=== PATIENT | female | born 1985 | race American Indian/Alaskan Native ===

== ENCOUNTER 2017-05-09 07:03 | Emergency (ER) | payer MEDICAID ==
--- NOTE | 2017-05-09 08:41 | Emergency Department Report ---
ED Abdominal Pain HPI - General Chief Complaint: Abdominal Pain Stated Complaint: ABD PAIN Time Seen by Provider: 05/09/17 08:40 Source: patient Mode of arrival: Stretcher Limitations: No Limitations - History of Present Illness Initial Comments: She has a 32-year-old female past medical history of cholecycectomy and gastroparesis who presents with severe left flank pain as R couple hours ago. Patient states pain is 10 out of 10 at it's a colic like pain that doesn't radiate. It's a stab-like pain. Patient is moving all around and writhing on the bed. Patient denies any other symptoms with her flank pain. Patient also has some nausea and vomiting. Patient is vomiting is nonbloody and nonbilious. - Related Data Previous Rx's Medication Instructions Recorded Last Taken Type Naproxen 250 mg PO BID #20 tablet 05/09/17 Unknown Rx Ondansetron [Zofran TAB] 4 mg PO Q8HR PRN #15 tablet 05/09/17 Unknown Rx Allergies Allergy/AdvReac Type Severity Reaction Status Date / Time No Known Allergies Allergy Verified 05/09/17 07:34 ED Review of Systems ROS: Stated complaint: ABD PAIN Other details as noted in HPI Constitutional: denies: chills, fever Eyes: denies: eye pain, eye discharge, vision change ENT: denies: ear pain, throat pain Respiratory: denies: cough, shortness of breath, wheezing Cardiovascular: denies: chest pain, palpitations Endocrine: no symptoms reported Gastrointestinal: nausea, vomiting, other (flank pain ). denies: abdominal pain , diarrhea Genitourinary: denies: urgency, dysuria, discharge Musculoskeletal: denies: back pain, joint swelling, arthralgia Skin: denies: rash, lesions Neurological: denies: headache, weakness, paresthesias Psychiatric: denies: anxiety, depression Hematological/Lymphatic: denies: easy bleeding, easy bruising ED Past Medical Hx - Past Medical History Previous Medical History?: Yes Additional medical history: Gastroporesis - Surgical History Past Surgical History?: Yes Hx Cholecystectomy: Yes - Social History Smoking Status: Never Smoker Substance Use Type: Marijuana - Medications Home Medications: Home Medications Medication Instructions Recorded Confirmed Last Taken Type Naproxen 250 mg PO BID #20 tablet 05/09/17 Unknown Rx Ondansetron [Zofran TAB] 4 mg PO Q8HR PRN #15 tablet 05/09/17 Unknown Rx ED Physical Exam - General Limitations: No Limitations General appearance: alert, in distress - Head Head exam: Present: atraumatic, normocephalic - Eye Eye exam: Present: normal appearance - ENT ENT exam: Present: mucous membranes moist - Neck Neck exam: Present: normal inspection - Respiratory Respiratory exam: Present: normal lung sounds bilaterally. Absent: respiratory distress - Cardiovascular Cardiovascular Exam: Present: regular rate, normal rhythm. Absent: systolic murmur, diastolic murmur, rubs, gallop - GI/Abdominal GI/Abdominal exam: Present: soft, normal bowel sounds - Extremities Exam Extremities exam: Present: normal inspection - Back Exam Back exam: Present: normal inspection - Neurological Exam Neurological exam: Present: alert, oriented X3 - Psychiatric Psychiatric exam: Present: agitated - Skin Skin exam: Present: warm, intact, normal color, diaphoretic. Absent: rash ED Course Vital Signs 05/09/17 05/09/17 05/09/17 07:34 08:00 08:52 Temperature 97.4 F L Pulse Rate 87 87 Respiratory 24 22 20 Rate Blood Pressure 150/85 Blood Pressure 152/105 [Left] O2 Sat by Pulse 100 100 Oximetry 05/09/17 05/09/17 05/09/17 09:16 10:00 11:15 Temperature Pulse Rate 89 60 74 Respiratory 20 19 18 Rate Blood Pressure Blood Pressure 145/101 145/95 146/71 [Left] O2 Sat by Pulse 100 Oximetry 05/09/17 13:19 Temperature Pulse Rate 75 Respiratory 18 Rate Blood Pressure Blood Pressure 148/82 [Left] O2 Sat by Pulse Oximetry - Reevaluation(s) Reevaluation #1: 05/09/17 13:34 Patient is feeling better after IV pain medication ED Medical Decision Making - Lab Data Result diagrams: 05/09/17 09:00 05/09/17 09:00 Lab Results 05/09/17 05/09/17 05/09/17 Range/Units 09:00 09:00 09:00 WBC 14.8 H (4.5-11.0) K/mm3 RBC 4.33 (3.65-5.03) M/mm3 Hgb 13.3 (10.1-14.3) gm/dl Hct 39.7 (30.3-42.9) % MCV 92 (79-97) fl MCH 31 (28-32) pg MCHC 34 (30-34) % RDW 15.2 (13.2-15.2) % Plt Count 291 (140-440) K/mm3 Lymph % (Auto) 10.1 L (13.4-35.0) % Reynolds % (Auto) 5.4 (0.0-7.3) % Eos % (Auto) 0.1 (0.0-4.3) % Baso % (Auto) 0.5 (0.0-1.8) % Lymph # 1.5 (1.2-5.4) K/mm3 Reynolds # 0.8 (0.0-0.8) K/mm3 Eos # 0.0 (0.0-0.4) K/mm3 Baso # 0.1 (0.0-0.1) K/mm3 Seg Neutrophils % 83.9 H (40.0-70.0) % Seg Neutrophils # 12.4 H (1.8-7.7) K/mm3 Sodium 139 (137-145) mmol/L Potassium 3.1 L (3.6-5.0) mmol/L Chloride 101.7 (98-107) mmol/L Carbon Dioxide 20 L (22-30) mmol/L Anion Gap 20 mmol/L BUN 8 (7-17) mg/dL Creatinine 0.6 L (0.7-1.2) mg/dL Estimated GFR > 60 ml/min BUN/Creatinine Ratio 13 % Glucose 110 H (65-100) mg/dL Calcium 9.3 (8.4-10.2) mg/dL Total Bilirubin 0.40 (0.1-1.2) mg/dL AST 15 (5-40) units/L ALT 12 (7-56) units/L Alkaline Phosphatase 64 (35-129) units/L Total Protein 7.4 (6.3-8.2) g/dL Albumin 4.1 (3.9-5) g/dL Albumin/Globulin Ratio 1.2 % HCG, Quant < 2 (0-4) mIU/mL Urine Color (Yellow) Urine Turbidity (Clear) Urine pH (5.0-7.0) Ur Specific Ray (1.003-1.030) Urine Protein (Negative) mg/dL Urine Glucose (UA) (Negative) mg/dL Urine Ketones (Negative) mg/dL Urine Blood (Negative) Urine Nitrite (Negative) Urine Bilirubin (Negative) Urine Urobilinogen (<2.0) mg/dL Ur Leukocyte Esterase (Negative) Urine WBC (Auto) (0.0-6.0) /HPF Urine RBC (Auto) (0.0-6.0) /HPF U Epithel Cells (Auto) (0-13.0) /HPF Urine Mucus /HPF 05/09/17 Range/Units 09:28 WBC (4.5-11.0) K/mm3 RBC (3.65-5.03) M/mm3 Hgb (10.1-14.3) gm/dl Hct (30.3-42.9) % MCV (79-97) fl MCH (28-32) pg MCHC (30-34) % RDW (13.2-15.2) % Plt Count (140-440) K/mm3 Lymph % (Auto) (13.4-35.0) % Reynolds % (Auto) (0.0-7.3) % Eos % (Auto) (0.0-4.3) % Baso % (Auto) (0.0-1.8) % Lymph # (1.2-5.4) K/mm3 Reynolds # (0.0-0.8) K/mm3 Eos # (0.0-0.4) K/mm3 Baso # (0.0-0.1) K/mm3 Seg Neutrophils % (40.0-70.0) % Seg Neutrophils # (1.8-7.7) K/mm3 Sodium (137-145) mmol/L Potassium (3.6-5.0) mmol/L Chloride (98-107) mmol/L Carbon Dioxide (22-30) mmol/L Anion Gap mmol/L BUN (7-17) mg/dL Creatinine (0.7-1.2) mg/dL Estimated GFR ml/min BUN/Creatinine Ratio % Glucose (65-100) mg/dL Calcium (8.4-10.2) mg/dL Total Bilirubin (0.1-1.2) mg/dL AST (5-40) units/L ALT (7-56) units/L Alkaline Phosphatase (35-129) units/L Total Protein (6.3-8.2) g/dL Albumin (3.9-5) g/dL Albumin/Globulin Ratio % HCG, Quant (0-4) mIU/mL Urine Color Yellow (Yellow) Urine Turbidity Clear (Clear) Urine pH 7.0 (5.0-7.0) Ur Specific Ray 1.026 (1.003-1.030) Urine Protein 100 mg/dl (Negative) mg/dL Urine Glucose (UA) Neg (Negative) mg/dL Urine Ketones 80 (Negative) mg/dL Urine Blood Neg (Negative) Urine Nitrite Neg (Negative) Urine Bilirubin Neg (Negative) Urine Urobilinogen 2.0 (<2.0) mg/dL Ur Leukocyte Esterase Neg (Negative) Urine WBC (Auto) 1.0 (0.0-6.0) /HPF Urine RBC (Auto) 2.0 (0.0-6.0) /HPF U Epithel Cells (Auto) 2.0 (0-13.0) /HPF Urine Mucus 3+ /HPF - Radiology Data Radiology results: report reviewed, image reviewed CT abdomen noncontrast: Shows no acute intra-abdominal process. - Medical Decision Making Medical diagnosis: Nephrolithiasis Differential medical diagnosis: Pancreatitis, UTI, pyelonephritis I'll get CBC, CMP, UA, CT noncontrast, IV pain medication, IM Ativan She was given Ativan to calm her down and patient is feeling better after IV Dilaudid. Also patient home with follow-up with primary care doctor. Critical care attestation.: If time is entered above; I have spent that time in minutes in the direct care of this critically ill patient, excluding procedure time. ED Disposition Clinical Impression: Left flank pain Nausea and vomiting Qualifiers: Vomiting type: unspecified Vomiting Intractability: unspecified Qualified Code( s): R11.2 - Nausea with vomiting, unspecified Disposition: DC-01 TO HOME OR SELFCARE Is pt being admited?: No Does the pt Need Aspirin: No Condition: Stable Instructions: Abdominal Pain (ED) Prescriptions: Naproxen 250 mg PO BID #20 tablet Ondansetron [Zofran TAB] 4 mg PO Q8HR PRN #15 tablet PRN Reason: Nausea Referrals: PRIMARY CARE,MD [Primary Care Provider] - 3-5 Days
[2017-05-09] MEDS ORDERED: ATIVAN IM ONE (08:44)
[2017-05-09] MEDS ORDERED: TORADOL IM ONE (08:44)
[2017-05-09 09:12] LABS: Basophils % (Auto) 0.5 % (0.0-1.8); Eosinophils % (Auto) 0.1 % (0.0-4.3); Hematocrit 39.7 % (30.3-42.9); Hemoglobin 13.3 gm/dl (10.1-14.3); Mean Corpuscular HGB Conc 34 % (30-34); Mean Corpuscular Hemoglobin 31 pg (28-32); Mean Corpuscular Volume 92 fl (79-97); Platelet Count 291 K/mm3 (140-440); Red Blood Count 4.33 M/mm3 (3.65-5.03); Red Cell Distribution Width 15.2 % (13.2-15.2); White Blood Count 14.8 K/mm3 (4.5-11.0)
[2017-05-09] MEDS ORDERED: DILAUDID IV ONE (09:29)
[2017-05-09 09:31] LABS: Alanine Aminotransferase 12 units/L (7-56); Albumin 4.1 g/dL (3.9-5); Albumin/Globulin Ratio 1.2 %; Alkaline Phosphatase 64 units/L (35-129); Anion Gap 20 mmol/L; BUN/Creatinine Ratio 13; Blood Urea Nitrogen 8 mg/dL (7-17); Calcium 9.3 mg/dL (8.4-10.2); Carbon Dioxide 20 mmol/L (22-30); Chloride 101.7 mmol/L (98-107); Glucose 110 mg/dL (65-100); Potassium 3.1 mmol/L (3.6-5.0); Sodium 139 mmol/L (137-145); Total Protein 7.4 g/dL (6.3-8.2)
[2017-05-09 09:48] LABS: Bilirubin,Urine NEG (Negative); Blood,Urine NEG (Negative); Ketones,Urine 80 mg/dL (Negative); Leukocyte Esterase,Urine NEG (Negative); Mucus,Urine 3+ /HPF; Nitrite,Urine NEG (Negative)
--- NOTE | 2017-05-09 10:53 | Cat Scan Report ---
CT OF THE ABDOMEN AND PELVIS WITHOUT CONTRAST HISTORY: Left flank pain. TECHNIQUE: Helical CT without contrast. Sagittal and coronal reformatted images. FINDINGS: Within the limits of a noncontrast exam, the abdominal and pelvic viscera are within normal limits. The liver, biliary system, pancreas, spleen, kidneys, adrenal glands and bladder are unremarkable. The gallbladder has been surgically removed. The bowel loops are normal caliber and wall thickness. Normal appendix. The aorta is normal caliber. No ascites, bulky adenopathy or inflammatory changes. The uterus and adnexa are unremarkable. The lung bases are clear. Normal heart size. No suspicious bony lesion. IMPRESSION: Unremarkable noncontrast CT of the abdomen and pelvis.
[2017-05-09 13:20] VITALS: BP 148/82
== END 2017-05-09 14:03 | disposition home or self-care (01) ==
LOC: ED 07:03
DX: R10.9 Unspecified abdominal pain (principal); R11.2 Nausea with vomiting, unspecified; F12.10 Cannabis abuse, uncomplicated; Z90.49 Acquired absence of other specified parts of digestive tract
CPT/HCPCS: 36415; 51701; 74176; 80053; 81001; 84702; 85025; 96372; 96374; 99284; J1170; J1885; J2060; 99282

== ENCOUNTER 2017-05-09 14:00 | Emergency (ER) | payer MEDICAID ==
[2017-05-09 14:13] VITALS: BP 146/99
--- NOTE | 2017-05-09 14:19 | Emergency Department Report ---
ED General Adult HPI - General Chief complaint: Abdominal Pain Stated complaint: ABD PAIN Time Seen by Provider: 05/09/17 14:15 Source: patient Mode of arrival: Ambulatory Limitations: No Limitations - History of Present Illness Initial comments: Patient is a 32-year-old female mostly from past medical history who presents with left flank pain again after discharge. Patient states that she wants a shower and cranberry juice and with ice. Patient's demonstrating malingering behavior agent was just discharged and comes back with the same complaint. Pain is a 5 out 10 looking left flank nothing makes it better or worse. Patient is not in pain when nurses and Dr is not in room but when we tried to discharge her she suddenly moans in pain. - Related Data Previous Rx's Medication Instructions Recorded Last Taken Type Naproxen 250 mg PO BID #20 tablet 05/09/17 Unknown Rx Ondansetron [Zofran TAB] 4 mg PO Q8HR PRN #15 tablet 05/09/17 Unknown Rx Allergies Allergy/AdvReac Type Severity Reaction Status Date / Time No Known Allergies Allergy Verified 05/09/17 07:34 ED Review of Systems ROS: Stated complaint: ABD PAIN Other details as noted in HPI Constitutional: denies: chills, fever Eyes: denies: eye pain, eye discharge, vision change ENT: denies: ear pain, throat pain Respiratory: denies: cough, shortness of breath, wheezing Cardiovascular: denies: chest pain, palpitations Endocrine: no symptoms reported Gastrointestinal: denies: abdominal pain, nausea, diarrhea Genitourinary: denies: urgency, dysuria, discharge Musculoskeletal: denies: back pain, joint swelling, arthralgia Skin: denies: rash, lesions Neurological: denies: headache, weakness, paresthesias Psychiatric: as per HPI. denies: homicidal thoughts, suicidal thoughts Hematological/Lymphatic: denies: easy bleeding, easy bruising ED Past Medical Hx - Past Medical History Additional medical history: Gastroporesis - Surgical History Hx Cholecystectomy: Yes - Social History Smoking Status: Unknown if ever smoked - Medications Home Medications: Home Medications Medication Instructions Recorded Confirmed Last Taken Type Naproxen 250 mg PO BID #20 tablet 05/09/17 Unknown Rx Ondansetron [Zofran TAB] 4 mg PO Q8HR PRN #15 tablet 05/09/17 Unknown Rx ED Physical Exam - General Limitations: No Limitations General appearance: alert, in no apparent distress - Head Head exam: Present: atraumatic, normocephalic - Eye Eye exam: Present: normal appearance - ENT ENT exam: Present: mucous membranes moist - Neck Neck exam: Present: normal inspection - Respiratory Respiratory exam: Present: normal lung sounds bilaterally. Absent: respiratory distress - Cardiovascular Cardiovascular Exam: Present: regular rate, normal rhythm. Absent: systolic murmur, diastolic murmur, rubs, gallop - GI/Abdominal GI/Abdominal exam: Present: soft, normal bowel sounds - Extremities Exam Extremities exam: Present: normal inspection - Back Exam Back exam: Present: normal inspection - Neurological Exam Neurological exam: Present: alert, oriented X3 - Psychiatric Psychiatric exam: Present: agitated, other. Absent: homicidal ideation, suicidal ideation - Skin Skin exam: Present: warm, dry, intact, normal color. Absent: rash ED Course Vital Signs 05/09/17 05/09/17 14:10 14:20 Temperature 98.4 F Pulse Rate 78 Respiratory 20 24 Rate Blood Pressure 146/99 O2 Sat by Pulse 100 100 Oximetry ED Medical Decision Making - Medical Decision Making Chief medical diagnosis: Residual flank pain Differential medical diagnosis: Malingering, undiagnosed psychiatric disorder Patient is tolerating oral cranberry juice patient will go home patient verbalized understanding she denies having any suicidal or homicidal ideation. I will give patient follow up with [facility] department. Critical care attestation.: If time is entered above; I have spent that time in minutes in the direct care of this critically ill patient, excluding procedure time. ED Disposition Clinical Impression: Malingering, Left flank pain Disposition: DC-01 TO HOME OR SELFCARE Is pt being admited?: No Does the pt Need Aspirin: No Condition: Stable Instructions: Abdominal Pain (ED) Referrals: COOPER VILLALOBOS MD [Staff Physician] - 3-5 Days [facility] [Outside] - 3-5 Days
== END 2017-05-09 14:30 | disposition home or self-care (01) ==
LOC: ED 14:00
DX: R10.9 Unspecified abdominal pain (principal); K31.84 Gastroparesis; Z90.49 Acquired absence of other specified parts of digestive tract
CPT/HCPCS: 99282

== ENCOUNTER 2019-07-21 14:28 | Emergency (ER) | payer MEDICAID ==
--- NOTE | 2019-07-21 15:00 | Event Note ---
ED Screening Note Date of service: 07/21/19 Time: 14:58 ED Screening Note: 34 y o female presents with left sided flank pain x 2 days This initial assessment/diagnostic orders/clinical plan/treatment(s) is/are subject to change based on patients health status, clinical progression and re-assessment by fellow clinical providers in the ED. Further treatment and workup at subsequent clinical providers discretion. Patient/guardian urged not to elope from the ED as their condition may be serious if not clinically assessed and managed. Initial orders include: ua, upt
[2019-07-21 15:37] LABS: Bacteria,Urine 1+ /HPF (Negative); Bilirubin,Urine NEG (Negative); Blood,Urine LG (Negative); Color,Urine Amber (Yellow); Mucus,Urine 2+ /HPF
[2019-07-21 15:53] LABS: HCG Qualitative,Urine Negative (Negative)
[2019-07-21] MEDS ORDERED: ONDANSETRON 4 MG/2 ML INJ IV ONE (16:10)
[2019-07-21] MEDS ORDERED: MORPHINE 4 MG/1 ML INJ IV ONE (16:10)
--- NOTE | 2019-07-21 16:18 | Emergency Department Report ---
<DARIO HA - Last Filed: 07/21/19 23:15> ED Abdominal Pain HPI - General Chief Complaint: Urogenital-Female Stated Complaint: POSS UTI/L FLANK PAIN Time Seen by Provider: 07/21/19 15:52 - Related Data Previous Rx's Medication Instructions Recorded Last Taken Type Naproxen 250 mg PO BID #20 tablet 05/09/17 Unknown Rx Ondansetron [Zofran TAB] 4 mg PO Q8HR PRN #15 tablet 05/09/17 Unknown Rx Ondansetron [Zofran Odt] 4 mg PO Q8HR #6 tab.rapdis 07/21/19 Unknown Rx Allergies Allergy/AdvReac Type Severity Reaction Status Date / Time No Known Allergies Allergy Verified 05/09/17 07:34 ED Past Medical Hx - Medications Home Medications: Home Medications Medication Instructions Recorded Confirmed Last Taken Type Naproxen 250 mg PO BID #20 tablet 05/09/17 Unknown Rx Ondansetron [Zofran TAB] 4 mg PO Q8HR PRN #15 tablet 05/09/17 Unknown Rx Ondansetron [Zofran Odt] 4 mg PO Q8HR #6 tab.rapdis 07/21/19 Unknown Rx ED Medical Decision Making - Lab Data Result diagrams: 07/21/19 18:34 07/21/19 19:50 ED Disposition Clinical Impression: Abdominal pain Disposition: DC-01 TO HOME OR SELFCARE Is pt being admited?: No Does the pt Need Aspirin: No Condition: Stable Instructions: Abdominal Pain (ED) Additional Instructions: Take Tylenol or ibuprofen as needed for pain management. Take Zofran as needed for nausea and vomiting. Prescriptions: Ondansetron [Zofran Odt] 4 mg PO Q8HR #6 tab.rapdis Referrals: PRIMARY CAREMD [Primary Care Provider] - 3-5 Days [facility] [Provider Group] - 3-5 Days <ABRAM BLANDON - Last Filed: 07/23/19 22:25> ED Abdominal Pain HPI - General Source: patient, EMS Mode of arrival: Ambulatory Limitations: No Limitations - History of Present Illness Initial Comments: 34-year-old -[place]ish female patient complains of 3 days of left lower abdominal pain now radiating to her left flank. She denies any dysuria/hem aturia, however she does admit to difficulty with initiating urination. She rates her pain as 10/10 in severity. She denies any history of kidney stones or pyelonephritis. She admits to nausea, but denies any vomiting, stool changes, vaginal discharge/bleeding. MD Complaint: abdominal pain, flank pain -: Gradual, Sudden Location: LLQ Radiation: L flank Severity scale (0 -10): 10 Quality: burning Consistency: constant Improves With: nothing ED Review of Systems ROS: Stated complaint: POSS UTI/L FLANK PAIN Other details as noted in HPI Comment: All other systems reviewed and negative Constitutional: denies: chills, fever Gastrointestinal: as per HPI Genitourinary: as per HPI ED Past Medical Hx - Past Medical History Previous Medical History?: Yes Additional medical history: Gastroporesis, Anxiety - Surgical History Past Surgical History?: Yes Hx Cholecystectomy: Yes - Social History Smoking Status: Current Every Day Smoker Substance Use Type: Alcohol, Marijuana ED Physical Exam - General Limitations: No Limitations General appearance: alert, other (patient is rocking back and forth on the bed complaining of severe pain while holding her left flank area) - Head Head exam: Present: atraumatic, normocephalic - Eye Eye exam: Present: normal appearance. Absent: scleral icterus - Neck Neck exam: Present: normal inspection - Respiratory Respiratory exam: Present: normal lung sounds bilaterally. Absent: respiratory distress - Cardiovascular Cardiovascular Exam: Present: regular rate, normal rhythm. Absent: systolic murmur, diastolic murmur, rubs, gallop - GI/Abdominal GI/Abdominal exam: Present: soft, tenderness, normal bowel sounds. Absent: distended, guarding, rebound, rigid - Extremities Exam Extremities exam: Present: normal inspection - Back Exam Back exam: Present: full ROM, CVA tenderness (L). Absent: vertebral tenderness, rash noted - Neurological Exam Neurological exam: Present: alert, oriented X3 - Psychiatric Psychiatric exam: Present: normal affect - Skin Skin exam: Present: warm, dry, intact, normal color. Absent: rash ED Course Vital Signs 07/21/19 07/21/19 07/21/19 14:37 20:03 22:30 Temperature 98.5 F 98.2 F Pulse Rate 87 69 Respiratory 18 20 20 Rate Blood Pressure 167/111 Blood Pressure 177/98 [Right] O2 Sat by Pulse 99 97 98 Oximetry ED Medical Decision Making - Lab Data Result diagrams: 07/21/19 18:34 07/21/19 19:50 - Medical Decision Making 34-year-old -Swedish female patient complains of 3 days of left lower abdominal pain now radiating to her left flank. Vitals are normal. Pt appears non toxic. She does display some drug seeking behavior. Labs and CT pending. Pt handed off to Nusrat Ruiz PA-C Critical care attestation.: If time is entered above; I have spent that time in minutes in the direct care of this critically ill patient, excluding procedure time.
[2019-07-21] MEDS ORDERED: SODIUM CHLORIDE 0.9% 1000 ML 1,000 ML IV ONE ×2 (17:27→20:47)
[2019-07-21] MEDS ORDERED: SODIUM CHLORIDE 0.9% 1000 ML 1,000 ML ONE (17:30)
[2019-07-21] MEDS ORDERED: METOCLOPRAMIDE 10 MG/2 ML INJ IV ONE (18:22)
[2019-07-21] MEDS ORDERED: diphenhydrAMINE 50 MG/ML VIAL IV ONE (18:22)
[2019-07-21 18:48] LABS: Basophils # (Auto) 0.1 K/mm3 (0.0-0.1); Basophils % (Auto) 0.8 % (0.0-1.8); Eosinophils % (Auto) 0.2 % (0.0-4.3); Lymphocytes # (Auto) 1.7 K/mm3 (1.2-5.4); Lymphocytes % (Auto) 22.6 % (13.4-35.0); Mean Corpuscular HGB Conc 27 % (30-34); Mean Corpuscular Volume 95 fl (79-97); Monocytes # (Auto) 0.5 K/mm3 (0.0-0.8); Monocytes % (Auto) 6.8 % (0.0-7.3); Platelet Count 282 K/mm3 (140-440); Red Blood Count 4.64 M/mm3 (3.65-5.03); Red Cell Distribution Width 15.3 % (13.2-15.2)
[2019-07-21 18:50] LABS: Hematocrit 43.9 % (30.3-42.9); Hemoglobin 11.8 gm/dl (10.1-14.3)
[2019-07-21] MEDS ORDERED: HYDROmorphone 1 MG/1 ML INJ IV ONE (18:51)
[2019-07-21 19:00] LABS: Albumin 4.5 g/dL (3.9-5); BUN/Creatinine Ratio 10; Blood Urea Nitrogen 6 mg/dL (7-17); Calcium 9.4 mg/dL (8.4-10.2); Hemolysis Index 501
[2019-07-21 19:06] LABS: Alanine Aminotransferase 23 units/L (7-56)
--- NOTE | 2019-07-21 20:31 | Cat Scan Report ---
CT abdomen pelvis w con INDICATION: LLQ and flank pain. TECHNIQUE: All CT scans at this location are performed using the following dose modulation technique: Automated exposure control. CONTRAST: Omnipaque 300, 100 cc IV injection. COMPARISON: 05/09/2017. CT ABDOMEN: The parenchymal organs are unremarkable in appearance other than a subcentimeter left karl al cyst. Status post previous cholecystectomy. Mild prominence of the bile duct is likely on this basis.. Nega tive for abdominal mass, fluid or inflammation. The bowel is not dilated or thickened. CT PELVIS: Negative for pelvic mass, fluid or inflammation. IMPRESSION: Negative for obstruction or localized inflammation. Signer Name: Raz Hollowya MD Signed: 07/21/2019 8:27 PM Workstation Name: [id number]
[2019-07-21] MEDS ORDERED: HALOPERIDOL LACTATE 5 MG/1 ML INJ IM ONE (20:47)
[2019-07-22 00:06] VITALS: BP 177/98
[2019-07-22 03:49] LABS: Amphetamine Screen,Urine PRESUMPTIVE NEGATIVE; Benzodiazepines Screen,Urine PRESUMPTIVE NEGATIVE; Cannabinoid Screen,Urine PRESUMPTIVE NEGATIVE; Cocaine Screen,Urine PRESUMPTIVE NEGATIVE; Methadone Screen,Urine PRESUMPTIVE NEGATIVE; Opiate Screen,Urine PRESUMPTIVE NEGATIVE
== END 2019-07-21 23:30 | disposition home or self-care (01) ==
LOC: ED 14:28
DX: R10.30 Lower abdominal pain, unspecified (principal); K31.89 Other diseases of stomach and duodenum; Z90.49 Acquired absence of other specified parts of digestive tract; F17.200 Nicotine dependence, unspecified, uncomplicated; F12.10 Cannabis abuse, uncomplicated; Z79.899 Other long term (current) drug therapy
CPT/HCPCS: 36415; 74177; 80053; 80307; 81001; 81025; 83690; 84132; 85025; 96372; 96374; 96375; 99284; J1170; J1200; J1630; J2270; J2405; J2765; J7030; Q9967

== ENCOUNTER 2021-12-07 15:24 | Emergency (ER) | payer MEDICAID ==
[2021-12-07 16:29] VITALS: BP 188/100
[2021-12-07 17:26] LABS: Basophils # (Auto) 0.1 K/mm3 (0.0-0.1); Basophils % (Auto) 0.4 % (0.0-1.8); Hematocrit 45.1 % (30.3-42.9); Hemoglobin 15.1 gm/dl (10.1-14.3); Lymphocytes # (Auto) 1.3 K/mm3 (1.2-5.4); Lymphocytes % (Auto) 9.2 % (13.4-35.0); Mean Corpuscular HGB Conc 34 % (30-34); Mean Corpuscular Volume 94 fl (79-97); Monocytes # (Auto) 0.8 K/mm3 (0.0-0.8); Monocytes % (Auto) 5.3 % (0.0-7.3); Red Blood Count 4.82 M/mm3 (3.65-5.03); Red Cell Distribution Width 15.9 % (13.2-15.2)
[2021-12-07 17:49] LABS: Alanine Aminotransferase 26 units/L (7-56); Albumin 5.2 g/dL (3.9-5); Blood Urea Nitrogen 11 mg/dL (7-17); Calcium 10.3 mg/dL (8.4-10.2); Hemolysis Index 41
[2021-12-07 17:53] LABS: BUN/Creatinine Ratio 18
[2021-12-07 19:41] LABS: Platelet Count 346 K/mm3 (140-440)
[2021-12-07] MEDS ORDERED: SODIUM CHLORIDE 0.9% 1000 ML 1,000 ML IV ONE (19:49)
[2021-12-07] MEDS ORDERED: ONDANSETRON 4 MG/2 ML INJ IV ONE (19:49)
[2021-12-07] MEDS ORDERED: FAMOTIDINE 20 MG/2 ML INJ IV ONE (20:53)
[2021-12-07] MEDS ORDERED: MORPHINE 4 MG/1 ML INJ IV ONE (20:53)
[2021-12-07] MEDS ORDERED: ONDANSETRON 4 MG/2 ML INJ ONE (22:13)
[2021-12-07] MEDS ORDERED: ONDANSETRON 4 MG/2 ML INJ IM ONE (22:16)
[2021-12-07] MEDS ORDERED: HYDROmorphone 1 MG/1 ML INJ IM ONE (22:16)
[2021-12-07 23:47] LABS: Bilirubin,Urine NEG (Negative); Blood,Urine SM (Negative); Color,Urine Yellow (Yellow); Mucus,Urine 3+ /HPF; Protein,Urine >500 mg/dL (Negative); Urobilinogen,Urine < 2.0 mg/dL (<2.0)
--- NOTE | 2021-12-08 02:39 | Emergency Department Report ---
ED Abdominal Pain HPI - General Chief Complaint: Abdominal Pain Stated Complaint: BACK PAIN Source: patient Mode of arrival: Ambulatory Limitations: No Limitations - History of Present Illness Initial Comments: Patient is a 36-year-old -[place]ames[place] female with a history of GERD and chronic gastroparesis with occasional cyclic vomiting syndrome presents to the ED with complaint of acute onset persistent epigastric pain with nausea and vomiting for the last 12 hours. Patient states that she has had multiple vomiting episodes since the onset of the symptoms. Patient states that she has not been able to keep anything down including fluids because of vomiting. Patient denies hematemesis, hematochezia, diarrhea, dysuria, urinary frequency and urgency, vaginal discharge, vaginal bleeding, cough, chest pain or shortness of breath, sore throat, headache, dizziness and syncope. MD Complaint: abdominal pain (Epigastric pain), other (Nausea and vomiting) -: Sudden, hour(s) (12) Location: epigastric Radiation: none Migration to: no migration Severity scale (0 -10): 7 Quality: cramping, sharp Consistency: intermittent Improves With: nothing Worsens With: eating, vomiting Context: possible food poisoning, other (Chronic gastroparesis) Associated Symptoms: nausea, vomiting. denies: diarrhea, fever, chills, dysuria, hematochezia, melena, anorexia, syncope - Related Data Previous Rx's Medication Instructions Recorded Last Taken Type Naproxen 250 mg PO BID #20 tablet 05/09/17 Unknown Rx Ondansetron [Zofran TAB] 4 mg PO Q8HR PRN #15 tablet 05/09/17 Unknown Rx Dicyclomine [Bentyl] 20 mg PO Q6H #30 tablet 12/08/21 Unknown Rx Famotidine [Pepcid] 20 mg PO BID #60 tablet 12/08/21 Unknown Rx Ondansetron [Zofran ODT TAB] 4 mg PO Q6HR PRN #20 tab.rapdis 12/08/21 Unknown Rx Allergies Allergy/AdvReac Type Severity Reaction Status Date / Time No Known Allergies Allergy Verified 05/09/17 07:34 ED Review of Systems ROS: Stated complaint: BACK PAIN Other details as noted in HPI Constitutional: denies: chills, fever Eyes: denies: eye pain, eye discharge, vision change ENT: denies: ear pain, throat pain Respiratory: denies: cough, shortness of breath, wheezing Cardiovascular: denies: chest pain, palpitations Endocrine: no symptoms reported Gastrointestinal: abdominal pain (Epigastric pain), nausea, vomiting. denies: diarrhea Genitourinary: denies: urgency, dysuria, discharge Musculoskeletal: denies: back pain, joint swelling, arthralgia Skin: denies: rash, lesions Neurological: denies: headache, weakness, paresthesias Psychiatric: anxiety. denies: depression, auditory hallucinations, visual hallucinations, suicidal thoughts Hematological/Lymphatic: denies: easy bleeding, easy bruising ED Past Medical Hx - Past Medical History Previous Medical History?: Yes Hx Psychiatric Treatment: Yes (Anxiety) Additional medical history: Gastroporesis, Anxiety - Surgical History Hx Cholecystectomy: Yes - Social History Smoking Status: Current Every Day Smoker Substance Use Type: Alcohol, Marijuana - Medications Home Medications: Home Medications Medication Instructions Recorded Confirmed Last Taken Type Naproxen 250 mg PO BID #20 tablet 05/09/17 Unknown Rx Ondansetron [Zofran TAB] 4 mg PO Q8HR PRN #15 tablet 05/09/17 Unknown Rx Dicyclomine [Bentyl] 20 mg PO Q6H #30 tablet 12/08/21 Unknown Rx Famotidine [Pepcid] 20 mg PO BID #60 tablet 12/08/21 Unknown Rx Ondansetron [Zofran ODT TAB] 4 mg PO Q6HR PRN #20 tab.rapdis 12/08/21 Unknown Rx ED Physical Exam - General Limitations: No Limitations General appearance: alert, in no apparent distress - Head Head exam: Present: atraumatic, normocephalic, normal inspection - Eye Eye exam: Present: normal appearance, PERRL, EOMI Pupils: Present: normal accommodation - ENT ENT exam: Present: normal exam, normal orophraynx, mucous membranes moist, TM's normal bilaterally, normal external ear exam - Neck Neck exam: Present: normal inspection, full ROM. Absent: tenderness - Respiratory Respiratory exam: Present: normal lung sounds bilaterally. Absent: respiratory distress, wheezes, rales, rhonchi, chest wall tenderness, accessory muscle use, prolonged expiratory, other - Cardiovascular Cardiovascular Exam: Present: normal rhythm, tachycardia, normal heart sounds. Absent: systolic murmur, diastolic murmur, rubs, gallop - GI/Abdominal GI/Abdominal exam: Present: soft, tenderness (Palpable epigastric tenderness), normal bowel sounds. Absent: guarding, rebound, hyperactive bowel sounds, hypoactive bowel sounds, organomegaly, bruit - Extremities Exam Extremities exam: Present: normal inspection, full ROM, normal capillary refill - Back Exam Back exam: Present: normal inspection, full ROM. Absent: tenderness, CVA tenderness (R), CVA tenderness (L), muscle spasm, paraspinal tenderness, v ertebral tenderness - Neurological Exam Neurological exam: Present: alert, oriented X3, CN II-XII intact, normal gait, reflexes normal - Psychiatric Psychiatric exam: Present: normal affect, normal mood, anxious - Skin Skin exam: Present: warm, dry, intact, normal color. Absent: rash ED Course Vital Signs 12/07/21 12/07/21 15:34 16:26 Temperature 97.9 F 98.6 F Pulse Rate 100 H 60 Respiratory 20 18 Rate Blood Pressure 191/114 188/100 [Right] O2 Sat by Pulse 98 99 Oximetry ED Medical Decision Making - Lab Data Result diagrams: 12/07/21 16:32 12/07/21 16:32 - Medical Decision Making This is a 36-year-old -[place] female with a history of GERD and chronic gastroparesis with occasional cyclic vomiting syndrome presents to the ED with complaint of acute onset persistent epigastric pain with nausea and vomiting for the last 12 hours. Patient states that she has had multiple vomiting episodes since the onset of the symptoms. Patient states that she has not been able to keep anything down including fluids because of vomiting. In the ED, patient is alert and oriented x3 and is not in any distress. Patient was treated for pain in the ED and also given antiemetics and antacids. Lab test results were reviewed and showed acute leukocytosis of 14,500. The rest of the lab test results are nonactionable. On reevaluation, patient felt better, patient passed oral fluid challenge in the ED. Patient was discharged home on medications and advised to maintain a clear liquid diet for 12 to 24 hours, and to follow-up with her primary care physician in 5 to 7 days for reevaluation. Patient was advised return to ED immediately if symptoms get worse. - Differential Diagnosis GERD; gastroparesis; dehydration; gastritis Critical care attestation.: If time is entered above; I have spent that time in minutes in the direct care of this critically ill patient, excluding procedure time. ED Disposition Clinical Impression: Nausea and vomiting in adult patient, Abdominal pain, acute, epigastric, Nondiabetic gastroparesis GERD (gastroesophageal reflux disease) Qualifiers: Esophagitis presence: esophagitis presence not specified Qualified Code(s): K21.9 - Gastro-esophageal reflux disease without esophagitis Disposition: HOME / SELF CARE / HOMELESS Is pt being admited?: No Does the pt Need Aspirin: No Condition: Stable Instructions: Abdominal Pain (ED), Heartburn, [id number], Abdominal Pain, Adult, [id number], Nausea and Vomiting, Adult, [id number], Gastroesophageal Reflux Disease, Adult, [id number] Additional Instructions: Maintain a clear liquid diet for 12 to 24 hours, drink plenty of fluids, take medication with food, follow-up with your primary care physician in 5 to 7 days for reevaluation. Return to the ED immediately if symptoms get worse. Prescriptions: Dicyclomine [Bentyl] 20 mg PO Q6H #30 tablet Famotidine [Pepcid] 20 mg PO BID #60 tablet Ondansetron [Zofran ODT TAB] 4 mg PO Q6HR PRN #20 tab.rapdis PRN Reason: Nausea Referrals: [facility] [Provider Group] - 3-5 Days Time of Disposition: 02:40 Print Language: UKRAINIAN
== END 2021-12-08 03:08 | disposition home or self-care (01) ==
LOC: ED 15:24
DX: K21.9 Gastro-esophageal reflux disease without esophagitis (principal); R10.13 Epigastric pain; R11.2 Nausea with vomiting, unspecified; F41.9 Anxiety disorder, unspecified; F17.200 Nicotine dependence, unspecified, uncomplicated; Z79.899 Other long term (current) drug therapy
CPT/HCPCS: 36415; 80053; 81001; 83690; 84703; 85025; 96372; 99283; J1170; J2405; J3490; J2270

== ENCOUNTER 2022-03-21 00:52 | Emergency (ER) | payer MEDICAID ==
[2022-03-21 00:59] VITALS: BP 180/128
== END 2022-03-21 01:20 | disposition left against medical advice (07) ==
LOC: ED 00:52
DX: R10.9 Unspecified abdominal pain (principal); Z53.21 Procedure and treatment not carried out due to patient leaving prior to being seen by health care provider